=== PATIENT | male | born 1950 | race Caucasian/White ===

== ENCOUNTER 2017-11-12 14:23 | Emergency (ER) | payer OTHER, BC ==
[~2017-11-12] VITALS: Ht 167.6 cm; Wt 82.0 kg
[2017-11-12 14:28] VITALS: Ht 167.6 cm; Wt 82.0 kg
--- NOTE | 2017-11-12 14:36 | EMERGENCY ROOM VISIT NOTE ---
History Report prepared by Roselia: Vasile Jarquin Under the Supervision of: Dr. James Rojas M.D. First contact with patient: 14:31 Chief Complaint: FOREIGNBODY ANY BODY PART Stated Complaint: OBJECT IN RECTUM History of Present Illness The patient is a 67 year old male who presents to the Emergency Room with complaints of a persistent foreign body in the rectum that started this morning. He states that he "was having a little fun this morning", and lost control of a cigar tube in his rectum. The patient says that he can feel it but cannot pull it out. He states that he has a bit of pain in the area. He denies any abdominal pain. He notes a past medical history of prostate cancer, and a prostatectomy. Source of History: patient Onset: This morning Position: other (rectum) Symptom Intensity: cannot pull the cigar tube out Quality: other (foreign body) Timing: other (persistent) Associated Symptoms: No abdominal pain Note: Associated symptoms: A bit of rectal pain. Review of Systems See HPI for pertinent positives & negatives. A total of 10 systems reviewed and were otherwise negative. Past Medical & Surgical Medical Problems: (1) Prostate CA Surgical Problems: (1) Hx of prostatectomy Family History No pertinent family history Social History Smoking Status: Never Smoker Marital Status: Housing Status: lives with family Occupation Status: employed Current/Historical Medications Scheduled Aspirin (Aspirin Ec), 81 MG PO DAILY Ezetimibe/Simvastatin (Vytorin 10MG/40MG), 1 TAB PO QPM Multiple Vitamins W/ Minerals (Preservision Areds), 1 CAP PO DAILY Allergies Coded Allergies: No Known Allergies (Unverified , 11/12/17) Physical Exam Vital Signs Date Time Temp Pulse Resp B/P (MAP) Pulse Ox O2 Delivery O2 Flow Rate FiO2 11/12/17 16:39 96 18 130/83 91 Room Air 11/12/17 16:10 104 18 129/84 94 Room Air 11/12/17 16:03 115 18 145/98 95 Room Air 11/12/17 15:51 36.8 105 18 126/84 (98) 91 Room Air 11/12/17 14:28 36.7 120 20 148/90 91 Room Air Physical Exam GENERAL: Awake, alert, well-appearing, in no acute distress HENT: Normocephalic, atraumatic. Oropharynx unremarkable. EYES: Normal conjunctiva. Sclera non-icteric. NECK: Supple. No nuchal rigidity. FROM. No JVD. RESPIRATORY: Clear to auscultation. CARDIAC: Regular rate, normal rhythm. Extremities warm and well perfused. Pulses equal. ABDOMEN: Soft, non-distended. No tenderness to palpation. No rebound or guarding. No masses. RECTAL: The rectum is slightly prolapsed. I cannot find a foreign body on digital rectal exam. MUSCULOSKELETAL: Chest examination reveals no tenderness. The back is symmetrical on inspection without obvious abnormality. There is no CVA tenderness to palpation. No joint edema. LOWER EXTREMITIES: Calves are equal size bilaterally and non-tender. No edema. No discoloration. NEURO: Normal sensorium. No sensory or motor deficits noted. SKIN: No rash or jaundice noted. Medical Decision & Procedures ER Provider Diagnostic Interpretation: X-ray results as stated below per interpretation by me and the radiologist: GRACIE CLINICAL HISTORY: Pt c/o foreign body foreign body COMPARISON STUDY: No previous studies for comparison. FINDINGS: Tubular foreign body within the rectum and/or low sigmoid measuring 6 cm in maximum linear dimension. Maximum cross-sectional dimension is 2.3 cm. Bowel pattern is nonobstructive. There are no secondary signs of free air. There is no bowel distention. IMPRESSION: Tubular air-containing structure considered a foreign body within the low sigmoid/rectal junction. Measurements are 6 cm x 2.3 cm. No evidence for free air or bowel obstruction. The above report was generated using voice recognition software. It may contain grammatical, syntax or spelling errors. Electronically signed by: Blake Mejia M.D. 11/12/2017 2:57 PM Dictated Date/Time: 11/12/2017 2:56 PM Medications Administered Medications (Trade) Dose Ordered Sig/Dee Route Start Time Stop Time Status Last Admin Dose Admin Lorazepam (Ativan Inj) 2 mg NOW STAT IV 11/12/17 14:38 11/12/17 14:40 DC 11/12/17 14:58 2 MG Metoclopramide HCl (Reglan Inj) 10 mg NOW STAT IV 11/12/17 14:38 11/12/17 14:40 DC 11/12/17 14:58 10 MG ED Course 1433: Past medical records reviewed. The patient was evaluated in room B11B. A complete history and physical examination was performed. 1438: Reglan Inj 10 mg IV, Ativan Inj 2 mg IV. 1443: I discussed the patient with Dr. Alistair AWAD general surgery - he says to call gastroenterology. 1447: I discussed the patient with [facility] gastro[facility]. 1517: I reevaluated the patient and he is doing better. 1605: I was notified that the [facility] and [facility] 1650: Upon reexamination the [facility] and is fixed. I discussed results and treatment plan with the patient. He verbalizes agreement and understanding. The patient is ready for discharge. Medical Decision Differential diagnosis: Rectal foreign body. This is a 67-year-old male who presents the emergency department complaining of foreign body. I attempted to manually retrieve the foreign body without success. The patient was given a IV along with Ativan and Reglan. Repeat examination revealed no improvement in the patient's symptoms. I did discuss the case with gastroenterology director of donor relations who agreed to take the patient to the endoscopy suite. The patient was returned to the emergency department after his scope. He was then discharged. Medication Reconcilliation Current Medication List: was personally reviewed by me Blood Pressure Screening Patient's blood pressure: Elevated blood pressure Blood pressure disposition: Elevated BP felt to be situational Consults Time Called: 1440 Consulting Physician: Dr. Alistair AWAD general surgery Returned Call: 1443 I discussed the patient with Dr. Alistair AWAD general surgery - he says to call gastroenterology. Additional Consults: Time Called: 1445 Consulted Physician: [facility] gastro[facility] Returned Call: 1447 Additional Comments: I discussed the patient with [facility] gastroenterology. Impression Primary Impression: Rectal foreign body Scribe Attestation The scribe's documentation has been prepared under my direction and personally reviewed by me in its entirety. I confirm that the note above accurately reflects all work, treatment, procedures, and medical decision making performed by me. Departure Information Dispostion Home / Self-Care Referrals No Doctor, Assigned (PCP) Patient Instructions My [facility] Additional Instructions You received narcotic or benzodiazepene medication while in the emergency room today. This is an addictive medication that may cause drowziness as well as constipation. Do not drive, operate heavy machinery, or drink alcohol under the influence of this medication. You have been examined and treated today on an emergency basis only. This is not a substitute for, or an effort to provide, complete comprehensive medical care. It is impossible to recognize and treat all injuries or illnesses in a single emergency department visit. It is therefore important that you follow up closely with your PCP. Call as soon as possible for an appointment. Thank you for your time and consideration. I look forward to speaking with you again soon. Please don't hesitate to call us if you have any questions. Problem Qualifiers Primary Impression: Rectal foreign body Encounter type: initial encounter Qualified Codes: T18.5XXA - Foreign body in anus and rectum, initial encounter
[2017-11-12] MEDS ORDERED: METOCLOPRAMIDE HCL INJ 5 MG/ML 2 ML VIAL IV STA (14:38)
[2017-11-12] MEDS ORDERED: LORAZEPAM 2 MG/ML 1 ML VIAL IV STA (14:38)
--- NOTE | 2017-11-12 14:58 | DIAGNOSTIC IMAGING REPORT ---
KUB CLINICAL HISTORY: Pt c/o foreign body foreign body COMPARISON STUDY: No previous studies for comparison. FINDINGS: Tubular foreign body within the rectum and/or low sigmoid measuring 6 cm in maximum linear dimension. Maximum cross-sectional dimension is 2.3 cm. Bowel pattern is nonobstructive. There are no secondary signs of free air. There is no bowel distention. IMPRESSION: Tubular air-containing structure considered a foreign body within the low sigmoid/rectal junction. Measurements are 6 cm x 2.3 cm. No evidence for free air or bowel obstruction. The above report was generated using voice recognition software. It may contain grammatical, syntax or spelling errors. Electronically signed by: Blake Mejia M.D. 11/12/2017 2:57 PM Dictated Date/Time: 11/12/2017 2:56 PM
[2017-11-12] MEDS ORDERED: ASPI81TA28 PO (15:11)
[2017-11-12] MEDS ORDERED: EZET10TA41 PO (15:11)
[2017-11-12] MEDS ORDERED: MULTCAP33 PO (15:11)
--- NOTE | 2017-11-12 15:42 | Endo History and Physical ---
History & Physical Date of Service: Nov 12, 2017. Chief Complaint: foreign body in rectum Referring Physician: History of Present Illness Pt with foreign body in rectum from this am. Denies abd pain. Lor PO without difficulty. Social History Smoking Status: Never Smoker Allergies Coded Allergies: No Known Allergies (Unverified , 11/12/17) Current Medications Reported Home Medications Medications Dose Route/Sig Max Daily Dose Days Date Category Preservision Areds (Multiple Vitamins W/ Minerals) 1 Cap Cap 1 Cap PO DAILY 11/12/17 Reported Aspirin Ec (Aspirin) 81 Mg Tab 81 Mg PO DAILY 11/12/17 Reported Vytorin 10MG/40MG (Ezetimibe/Simvastatin) Tab 1 Tab PO QPM 11/12/17 Reported Vital Signs Weight (Kilograms): 82.000 Height (Feet): 5 Height (Inches): 6.00 Date Time Temp Pulse Resp B/P (MAP) Pulse Ox O2 Delivery O2 Flow Rate FiO2 11/12/17 14:28 36.7 120 20 148/90 91 Room Air Physical Exam General Appearance: no apparent distress Respiratory/Chest: Auscultation: breath sounds normal Cardiovascular: Heart Auscultation: RRR Abdomen: Inspection & Palpation: soft Rectal: large engorged hemorrhoid Assessment and Plan FB at recto sigmoid jxn - Cscopy for extraction
[2017-11-12 15:51] VITALS: TEMP 36.8
[2017-11-12 16:10] VITALS: O2SAT 94
--- NOTE | 2017-11-12 16:12 | Discharge Instructions ---
Endoscopy Patient Instructions Date / Procedure(s) Performed Nov 12, 2017. Flex Sig Allergy Information Coded Allergies: No Known Allergies (Unverified , 11/12/17) Discharge Date / Findings Nov 12, 2017. Engorged hemorrhoids Rectal foreign body, removed Diverticulosis Medication Instructions Begin Miralax 1/2 capful per day to achieve soft stool consistency Provider Instructions Activity Restrictions - No exercising or heavy lifting for 24 hours. - Do not drink alcohol the day of the procedure. - Do not drive a car or operate machinery until the day after the procedure. - Do not make any important decisions or sign important papers in 24 hours after the procedure. Following Day: - Return to full activity which may include returning to work/school. Diet Start your diet with liquids and light foods (jello, soup, juice, toast). Then eat your usual diet if not nauseated. Treatment For Common After Affects For mild abdominal pain, bloating, or excessive gas: - Rest - Eat lightly - Lie on right side Sitz baths after defecation and in the evening Follow-Up Information Follow-up with as scheduled Anesthesia Information What You Should Know You have had a procedure that required some medicine to reduce anxiety and discomfort. This treatment is called moderate sedation. After receiving the treatment, you may be sleepy, but you will be able to breathe on your own. The effects of the treatment may last for several hours. Follow these instructions along with Activity/Diet recommendations noted above: * Do NOT do anything where dizziness or clumsiness would be dangerous. * Rest quietly at home today, then you can be up and about tomorrow. * Have a responsible person stay with you the rest of today. * You may have had an I.V. today. If so, you may take the dressing off later today. Recommendations Call your doctor if: * Trouble breathing * Continuous vomiting for more than 24 hours * Temperature above 101 degrees * Severe abdominal pain or bloating * Pain not relieved by pain medicine ordered * There is increased drainage or redness from any incision * A large amount of rectal bleeding greater than 2-3 tablespoons. (If you had a polyp/s removed or have hemorrhoids, a small amount of blood - from the rectum is to be expected.) * You have any unanswered questions or concerns. IN THE EVENT OF A SERIOUS EMERGENCY, GO TO THE NEAREST EMERGENCY ROOM Your discharge instructions were prepared by provider Kayla Gandhi. Patient Instructions Signature Page Andre Luz Patient (or Guardian) Signature/Date: I have read and understand the instructions given to me by my caregivers. Caregiver/RN/Doctor Signature/Date: The above-named patient and/or guardian has received patient instructions on this date. + Original Patient Signature Page (only) stays with chart. Please make copy for patient.
[2017-11-12 16:39] VITALS: BP 130/83; PULSE 96; O2SAT 91
--- NOTE | 2017-11-15 12:44 | GI REPORT ---
Procedure Date: 11/12/2017 3:55 PM Procedure: Flexible Sigmoidoscopy Indications: Foreign body in the rectum Medicines: None Complications: No immediate complications. Estimated Blood Loss: Estimated blood loss: none. Procedure: Pre-Anesthesia Assessment: - ASA Grade Assessment: II - A patient with mild systemic disease. After obtaining informed consent, the endoscope was passed under direct vision. Throughout the procedure, the patient's blood pressure, pulse, and oxygen saturations were monitored continuously. The scope was introduced through the anus and advanced to the descending colon. After obtaining informed consent, the endoscope was passed under direct vision. Throughout the procedure, the patient's blood pressure, pulse, and oxygen saturations were monitored continuously.The flexible sigmoidoscopy was accomplished without difficulty. The patient tolerated the procedure well. The quality of the bowel preparation was adequate. Findings: Large, swollen hemorrhoids were found on perianal exam. There was no trauma or ischemia to the mucosa of the rectum or left colon. There was a large plastic cigar riley at the rectosigmoid junction. This was removed with a snare. All pictures are post removal. Impression: - Hemorrhoids found on perianal exam. - Foreign body, removed. Recommendation: - Discharge patient to home. See discharge instructions. Kayla Gomez M.D. Kayla Gomez MD 11/15/2017 12:43:33 PM This report has been signed electronically. Note Initiated On: 11/12/2017 3:55 PM I attest to the content of the Intraoperative Record and orders documented therein, exceptions below
== END 2017-11-12 17:11 | disposition home or self-care (01) ==
LOC: C.EDB 14:24
DX: T18.5XXA Foreign body in anus and rectum, initial encounter (principal); X58.XXXA Exposure to other specified factors, initial encounter; C61 Malignant neoplasm of prostate; Z79.82 Long term (current) use of aspirin